=== PATIENT | female | born 1990 | race Caucasian/White ===

== ENCOUNTER 2021-01-19 14:16 | Emergency (ER) | payer SELFPAY ==
[~2021-01-19] VITALS: Ht 165.1 cm; Wt 82.0 kg
[2021-01-19 14:20] VITALS: BP 119/73
[2021-01-19] MEDS ORDERED: SODIUM CHLORIDE 0.9% 1,000 ML IV ONE (15:00)
[2021-01-19 15:06] LABS: BASOPHILS % 0.8 % (0.0-2.0); EOSINOPHILS % 1.5 % (0.0-5.0); HEMATOCRIT. 36.9 % (36.0-48.0); HEMOGLOBIN. 12.5 g/dL (12.0-16.0); LYMPHOCYTES % 25.9 % (20.0-50.0); MEAN CORPUSCULAR HEMOGLOBIN 29.9 pg (28.0-32.0); MEAN PLATELET VOLUME 7.1 fl (7.4-10.4); MONOCYTES % 6.7 % (2.0-8.0); NEUTROPHILS % 65.1 % (40.0-76.0); PLATELET 274 x1000/uL (130-400); RED BLOOD CELL COUNT 4.19 mill/uL (4.2-5.4); RED CELL DISTRIBUTION WIDTH 13.7 % (11.6-14.6)
[2021-01-19 15:13] LABS: CHLORIDE 108 mEq/L (98-107)
[2021-01-19 15:16] LABS: HCG SCREEN NEGATIVE
== END 2021-01-19 16:15 | disposition home or self-care (01) ==
LOC: ER 14:16
DX: F15.10 Other stimulant abuse, uncomplicated (principal); R42 Dizziness and giddiness; F41.9 Anxiety disorder, unspecified; Z71.1 Person with feared health complaint in whom no diagnosis is made; Z86.19 Personal history of other infectious and parasitic diseases
CPT/HCPCS: 36415; 80053; 84703; 85025; 93005; 96360; 99284; Z7610

== ENCOUNTER 2021-05-26 17:24 | Emergency (ER) | payer SELFPAY ==
[~2021-05-26] VITALS: Ht 167.6 cm; Wt 82.0 kg
[2021-05-26 17:38] VITALS: BP 108/82
== END 2021-05-26 20:00 | disposition left against medical advice (07) ==
LOC: ER 17:24
DX: Z53.21 Procedure and treatment not carried out due to patient leaving prior to being seen by health care provider (principal); R56.9 Unspecified convulsions; Z88.8 Allergy status to other drugs, medicaments and biological substances; Z86.19 Personal history of other infectious and parasitic diseases

== ENCOUNTER 2021-09-11 11:44 | Emergency (ER) | payer MEDICAID ==
[~2021-09-11] VITALS: Ht 172.7 cm; Wt 84.0 kg
[2021-09-11 12:54] LABS: BASOPHILS % 0.2 % (0.0-2.0); EOSINOPHILS % 1.1 % (0.0-5.0); HEMATOCRIT. 37.6 % (36.0-48.0); HEMOGLOBIN. 12.5 g/dL (12.0-16.0); LYMPHOCYTES % 18.6 % (20.0-50.0); MEAN CORPUSCULAR HEMOGLOBIN 29.6 pg (28.0-32.0); MEAN CORPUSCULAR VOLUME 89.2 fL (81.0-99.0); MEAN PLATELET VOLUME 7.3 fl (7.4-10.4); MONOCYTES % 7.9 % (2.0-8.0); NEUTROPHILS % 72.2 % (40.0-76.0); PLATELET 262 x1000/uL (130-400); RED BLOOD CELL COUNT 4.21 mill/uL (4.2-5.4); RED CELL DISTRIBUTION WIDTH 13.3 % (11.6-14.6)
[2021-09-11 13:05] LABS: CLARITY URINE CLOUDY (CLEAR); COLOR URINE DARK YELLOW (YELLOW); KETONES URINE TRACE (NEGATIVE); LEUKOCYTE ESTERASE URINE 1+ (NEGATIVE); NITRITE URINE POSITIVE (NEGATIVE); OCCULT BLOOD URINE 1+ (NEGATIVE); PH URINE 5.5 (4.5-8.0); PROTEIN URINE 1+ (NEGATIVE); SPECIFIC GRAVITY URINE 1.032 (1.005-1.030)
[2021-09-11 13:07] LABS: CHLORIDE 109 mEq/L (98-107)
[2021-09-11 13:11] LABS: ETHANOL BLOOD < 10 mg/dL
[2021-09-11 13:14] LABS: *BARBITURATES SCREEN URINE NEGATIVE (NEGATIVE)
[2021-09-11 13:15] LABS: *BENZODIAZEPINES SCREEN URINE NEGATIVE (NEGATIVE); *COCAINE SCREEN URINE NEGATIVE (NEGATIVE); OPIATES URINE SCREEN NEGATIVE (NEGATIVE)
[2021-09-11 13:24] LABS: METHADONE URINE SCREEN NEGATIVE (NEGATIVE)
[2021-09-11 13:29] LABS: *AMPHETAMINES SCREEN URINE PRESUMTIVE POSITIVE (NEGATIVE); CANNABINOID URINE SCREEN PRESUMTIVE POSITIVE (NEGATIVE); PHENCYCLIDINE URINE SCREEN PRESUMTIVE POSITIVE (NEGATIVE)
[2021-09-11] MEDS ORDERED: CEFTRIAXONE 1 G PREMIX 50 ML IV ONE (19:30)
[2021-09-11] MEDS ORDERED: CEFTRIAXONE SODIUM 1 G/VIAL IM ONE (20:00)
[2021-09-12] MEDS ORDERED: LOPERAMIDE HCL 2MG CAPSULE PO ONE (01:00)
[2021-09-12] MEDS ORDERED: DIPHENHYDRAMINE 50MG/ML VIAL IV ONE (01:30)
[2021-09-12] MEDS: OLANZAPINE 5MG TABLET PO SCH (17:00)
[2021-09-13] MEDS: OLANZAPINE 5MG TABLET PO SCH ×2 (09:13→17:19)
[2021-09-13] MEDS ORDERED: OLANZAPINE 5MG TABLET PO SCH (15:15)
[2021-09-13] MEDS ORDERED: DIPHENHYDRAMINE 50MG CAPSULE PO ONE (16:15)
[2021-09-13] MEDS ORDERED: CEPHALEXIN 250MG CAPSULE PO ONE (17:00)
[2021-09-13] MEDS ORDERED: LORAZEPAM 1MG TABLET PO ONE (17:45)
[2021-09-13] MEDS ORDERED: LORAZEPAM 1MG TABLET PO NR (18:15)
[2021-09-14] MEDS: OLANZAPINE 5MG TABLET PO SCH (09:06)
[2021-09-14 11:16] VITALS: BP 112/75
== END 2021-09-14 11:42 ==
LOC: ER 12:36
DX: R45.851 Suicidal ideations (principal); F15.10 Other stimulant abuse, uncomplicated; F17.290 Nicotine dependence, other tobacco product, uncomplicated; R51.9 Headache, unspecified; F20.9 Schizophrenia, unspecified; F32.9 Major depressive disorder, single episode, unspecified; N39.0 Urinary tract infection, site not specified; Z20.822 Contact with and (suspected) exposure to COVID-19
CPT/HCPCS: 36415; 80053; 80305; 80307; 80320; 80329; 81003; 81025; 85025; 87426; 96372; 96374; 99285; C9803; J0696; J1200; Q0163; U0003; U0005; G0480

== ENCOUNTER 2021-11-03 20:51 | Emergency (ER) | payer MEDICAID | END 2021-11-03 22:10 | disposition left against medical advice (07) | LOC: ER 20:51 | DX: Z53.21 Procedure and treatment not carried out due to patient leaving prior to being seen by health care provider (principal) ==

== ENCOUNTER 2022-05-07 03:29 | Emergency (ER) | payer MEDICAID | END 2022-05-07 05:50 | disposition left against medical advice (07) | LOC: ER 03:29 | DX: Z53.21 Procedure and treatment not carried out due to patient leaving prior to being seen by health care provider (principal) ==

== ENCOUNTER 2022-05-18 02:20 | Emergency (ER) | payer MEDICAID ==
[~2022-05-18] VITALS: Ht 170.2 cm; Wt 69.0 kg
[2022-05-18 02:30] VITALS: BP 122/82
== END 2022-05-18 04:12 | disposition home or self-care (01) ==
LOC: ER 02:45
DX: F15.10 Other stimulant abuse, uncomplicated (principal); F20.9 Schizophrenia, unspecified; F31.9 Bipolar disorder, unspecified; R45.851 Suicidal ideations; F11.10 Opioid abuse, uncomplicated; F17.210 Nicotine dependence, cigarettes, uncomplicated; Z59.00 Homelessness unspecified
CPT/HCPCS: 99283